=== PATIENT | female | born 1945 | race Caucasian/White ===

== ENCOUNTER 2021-01-18 09:43 | Outpatient (CLI) | payer MEDICARE, OTHER | END 2021-01-18 09:44 | disposition home or self-care (01) | LOC: BICMAMMO 09:43 | PROVIDERS: ATTEND Internal Medicine Rheumatology | DX: M81.0 Age-related osteoporosis without current pathological fracture (principal) | CPT/HCPCS: 77080 ==

== ENCOUNTER 2021-12-25 12:22 | Outpatient (CLI) | payer MEDICARE | END 2021-12-25 12:23 | disposition home or self-care (01) | LOC: BICRAD 12:22 | PROVIDERS: ATTEND Internal Medicine Rheumatology | DX: M25.561 Pain in right knee (principal); M25.562 Pain in left knee; M17.0 Bilateral primary osteoarthritis of knee ==

== ENCOUNTER 2022-05-22 08:45 | Outpatient (CLI) | payer MEDICARE ==
[2022-05-22 10:18] LABS: #Basophils 0.1 10x3/uL (0.0-0.2); #Eosinphils 0.1 10x3/uL (0.0-0.5); #Monocytes 0.6 10x3/uL (0.0-1.1); #Neutrophils 3.3 10x3/uL (1.5-8.4); %Basophils 1.3 % (0.0-2.0); %Eosinophils 2.2 % (0.0-6.0); %Lymphocytes 22.4 % (18.0-47.0); %Monocytes 11.5 % (0.0-10.0); %Neutrophils 61.9 % (40.0-75.0); Hemoglobin 12.4 g/dL (12.0-15.5); Mean Corpuscular HGB CONC 32.5 g/dL (32.0-36.0); Mean Corpuscular Hemoglobin 30.1 pg (27.0-33.0); Mean Corpuscular Volume 92.7 fl (81.6-98.3); Mean Platelet Volume 10.5 fl (7.4-10.4); Platelet Count 174 10x3/uL (150-450); RBC Distribution Width 16.5 % (11.5-14.5); Red Blood Cell (RBC) Count 4.12 10x6/uL (3.90-5.03); White Blood Cell (WBC) Count 5.4 10x3/uL (3.5-10.5)
[2022-05-22 10:46] LABS: INR-International Normal Ratio 1.1; Prothrombin Time 11.4 sec (9.5-12.1)
[2022-05-22 10:54] LABS: Anion Gap 15 mmol/L (10-20); BUN (Urea Nitrogen) 12 mg/dL (9.8-20.1); Calc. Creatinine Clearance 0 mL/min (70-130); Calcium 9.8 mg/dL (7.8-10.44); Carbon Dioxide 29 mmol/L (23-31); Chloride 99 mmol/L (98-107); Estimated GFR 78; Glucose 114 mg/dL (83-110); Potassium 3.7 mmol/L (3.5-5.1); Sodium 139 mmol/L (136-145)
== END 2022-05-22 08:46 | disposition home or self-care (01) ==
LOC: LABBT 08:45
PROVIDERS: ATTEND Orthopaedic Surgery
DX: Z01.812 Encounter for preprocedural laboratory examination (principal); M17.11 Unilateral primary osteoarthritis, right knee; Z20.822 Contact with and (suspected) exposure to COVID-19
CPT/HCPCS: 80048; 85025; 85610; 87081; 87811

== ENCOUNTER 2022-05-27 08:10 | Inpatient (IN) | payer MEDICARE ==
[2022-05-23 14:45] VITALS: BMI 28.8
[2022-05-27] MEDS ORDERED: Tranexamic Acid 1,000 MG/10 ML VIAL ONE (09:41)
[2022-05-27] MEDS ORDERED: Vancomycin (BATCH) 1.5 GRAM/300 ML BAG ONE (09:41)
[2022-05-27] MEDS ORDERED: Sodium Chloride 0.9% 100 ML ONE ×2 (09:41→11:03)
[2022-05-27] MEDS ORDERED: Midazolam HCl 2 mg/2 ml Vial ONE ×2 (10:19→10:47)
[2022-05-27] MEDS ORDERED: Fentanyl 100 MCG/2 ML VIAL ONE ×3 (10:19→15:08)
[2022-05-27] MEDS ORDERED: Bupivacaine PF 0.5% 30 ML VIAL ONE (10:47)
[2022-05-27] MEDS ORDERED: CEFAZOLIN 2 GM VIAL ONE (11:03)
[2022-05-27] MEDS ORDERED: Fentanyl 100 MCG/2 ML VIAL SLOW IVP PRN (11:12)
[2022-05-27] MEDS ORDERED: Zolpidem Tartrate 5 MG TAB PO PRN ×2 (11:15→12:32)
[2022-05-27] MEDS ORDERED: Ondansetron PF 4 MG/2 ML Vial IVP PRN ×2 (11:15→12:32)
[2022-05-27] MEDS ORDERED: Ropivacaine 0.2% 550 ML 550 ML NERVE BLCK SCH (11:15)
[2022-05-27] MEDS ORDERED: traMADol HCl 50 MG TAB PO PRN (11:15)
[2022-05-27] MEDS ORDERED: Promethazine HCl 25 MG/ML VIAL IM PRN ×2 (11:15→12:32)
[2022-05-27] MEDS ORDERED: PROPOFOL 200 MG/20 ML VIAL ONE (11:21)
[2022-05-27] MEDS ORDERED: diphenhydrAMINE 50 MG/ML VIAL ONE (11:21)
[2022-05-27] MEDS ORDERED: Ondansetron PF 4 MG/2 ML Vial ONE (11:21)
[2022-05-27] MEDS ORDERED: Bupivacaine HCl 0.5%/Epinephrine 1:200,000/PF 30 ml Vial ONE (11:21)
[2022-05-27] MEDS ORDERED: Lidocaine 1% PF 5 ML VIAL ONE (11:21)
[2022-05-27] MEDS: Acetaminophen 500 MG TAB PO SCH ×3 (12:00→23:59)
[2022-05-27] MEDS ORDERED: Promethazine HCl 25 MG/ML VIAL IVPB PRN (12:19)
[2022-05-27] MEDS ORDERED: PACU-Morphine 4MG/ML VIAL SLOW IVP PRN (12:19)
[2022-05-27] MEDS ORDERED: Acetaminophen 325 MG TAB PO PRN (12:32)
[2022-05-27] MEDS ORDERED: diphenhydrAMINE 25 MG CAP PO PRN (12:32)
[2022-05-27] MEDS ORDERED: oxyCODONE/Acetaminophen 5 mg/325 mg Tablet PO PRN ×2 (12:33)
[2022-05-27] MEDS: CEFAZOLIN 2 GM in Sodium Chloride 0.9% 100 ML IVPB SCH ×2 (12:45→21:17)
[2022-05-27] MEDS: Ketorolac Tromethamine 30 MG/ML VIAL IVP SCH ×2 (14:00→21:23)
[2022-05-27] MEDS: traMADol HCl 50 MG TAB PO PRN (17:19)
[2022-05-27] MEDS: Sodium Chloride 0.9% 1,000 ML IV SCH ×2 (17:21→23:54)
[2022-05-27] MEDS: Senokot S 8.6-50 MG TAB PO SCH (21:18)
[2022-05-27] MEDS: Ferrous Gluconate 324 MG TAB PO SCH (21:18)
[2022-05-28] MEDS ORDERED: HumaLOG 300 UNITS/3 ML VIAL SC PRN (00:34)
[2022-05-28] MEDS ORDERED: Dextrose 50% Abboject 50 ML SYRINGE SLOW IVP PRN (00:34)
[2022-05-28] MEDS ORDERED: Dextrose 5% in Water 1,000 ML IV PRN (00:34)
[2022-05-28 01:50] LABS: ALT (SGPT) 21 U/L (8-55); AST (SGOT) 35 U/L (5-34); Alkaline Phosphatase 37 U/L (40-110); Anion Gap 14 mmol/L (10-20); BUN (Urea Nitrogen) 10 mg/dL (9.8-20.1); Bilirubin, Total 0.7 mg/dL (0.2-1.2); Calc. Creatinine Clearance 85 mL/min (70-130); Calcium 8.4 mg/dL (7.8-10.44); Carbon Dioxide 25 mmol/L (23-31); Chloride 101 mmol/L (98-107); Estimated GFR 83; Globulin 2.4 g/dL (2.4-3.5); Glucose 286 mg/dL (83-110); Magnesium 1.2 mg/dL (1.6-2.6); Potassium 3.8 mmol/L (3.5-5.1); Protein, Total 5.4 g/dL (5.8-8.1); Sodium 136 mmol/L (136-145)
[2022-05-28 02:46] LABS: Band 2 % (5-11); Hemoglobin 10.3 g/dL (12.0-16.0); Lymphocytes 8 % (21-51); MDiff Complete? YES; Macrocytosis SLIGHT = 6-15 cells (100X) (0-5/hpf); Mean Corpuscular Hemoglobin 33.4 pg (27.0-31.0); Mean Corpuscular Volume 98.2 fL (78.0-98.0); Mean Platelet Volume 8.2 fL (7.4-10.4); Monocytes 14 % (0-10); Neutrophil 76 % (42-75); Ovalocytes SLIGHT = 2-5 cells (100X) (0-1/hpf); Platelet Count 110 thou/uL (130-400); Platelet Morphology Comment Appears Decreased; RBC Distribution Width 16.2 % (11.5-14.5); Red Blood Cell (RBC) Count 3.07 mill/uL (4.20-5.40); Tear Drops SLIGHT = 2-5 cells (100X) (0-1/hpf); White Blood Cell (WBC) Count 8.4 thou/uL (4.8-10.8)
[2022-05-28 04:24] LABS: Mean Corpuscular HGB CONC 33.1 g/dL (32.0-36.0); Mean Corpuscular Hemoglobin 32.6 pg (27.0-31.0); Mean Corpuscular Volume 98.4 fL (78.0-98.0); Mean Platelet Volume 7.9 fL (7.4-10.4); Platelet Count 113 thou/uL (130-400); Red Blood Cell (RBC) Count 3.08 mill/uL (4.20-5.40); White Blood Cell (WBC) Count 8.1 thou/uL (4.8-10.8)
[2022-05-28] MEDS ORDERED: Magnesium 2 GM/50 ML(in water) 2 GM in Premix Bag 1 BAG IVPB SCH (06:15)
[2022-05-28] MEDS: Levothyroxine Sodium 112 MCG TAB PO SCH (06:20)
[2022-05-28] MEDS: Ketorolac Tromethamine 30 MG/ML VIAL IVP SCH ×3 (06:20→21:10)
[2022-05-28] MEDS: Levothyroxine Sodium 25 MCG TAB PO SCH (06:20)
[2022-05-28] MEDS: Acetaminophen 500 MG TAB PO SCH ×3 (06:22→19:11)
[2022-05-28] MEDS: HumaLOG 300 UNITS/3 ML VIAL SC PRN ×2 (07:27→12:20)
[2022-05-28] MEDS ORDERED: Non-Formulary Item 1 EACH (Levothyroxine Sodium [Levothyroxine Sodium] 137 MCG Tablet) PO SCH (09:00)
[2022-05-28] MEDS: Multivitamin W/ Minerals 1 TAB PO SCH (10:16)
[2022-05-28] MEDS: Ferrous Gluconate 324 MG TAB PO SCH ×2 (10:16→21:09)
[2022-05-28] MEDS: Metoprolol Tartrate 25 MG TAB PO SCH ×2 (10:17→21:10)
[2022-05-28] MEDS: Senokot S 8.6-50 MG TAB PO SCH ×4 (10:18→21:23)
[2022-05-28] MEDS: Folic Acid 1 MG TAB PO SCH (10:19)
[2022-05-28] MEDS: Cholecalciferol 1,000 UNITS (25 MCG) TAB PO SCH (10:20)
[2022-05-28] MEDS: Magnesium Oxide 400 MG TAB PO SCH (10:21)
[2022-05-28] MEDS: Losartan 25 MG TAB PO SCH (10:21)
[2022-05-28] MEDS: Furosemide 40 MG TAB PO SCH (10:21)
[2022-05-28] MEDS: Atorvastatin Calcium 20 MG TAB PO SCH (10:21)
[2022-05-28] MEDS: HumuLIN 70/30 (300 UNITS/3 ML VIAL) SC SCH ×2 (10:55→19:26)
[2022-05-28] MEDS: Ferrous Sulfate 325 MG TAB PO SCH (11:10)
[2022-05-28] MEDS: traMADol HCl 50 MG TAB PO PRN (11:19)
[2022-05-28] MEDS: Sodium Chloride 0.9% 1,000 ML IV SCH ×2 (13:22→19:29)
[2022-05-28] MEDS: diphenhydrAMINE 25 MG CAP PO SCH (21:10)
[2022-05-29] MEDS: Acetaminophen 500 MG TAB PO SCH ×4 (00:26→17:10)
[2022-05-29 04:42] LABS: Hemoglobin 9.4 g/dL (12.0-16.0); Mean Corpuscular HGB CONC 32.1 g/dL (32.0-36.0); Mean Corpuscular Hemoglobin 31.8 pg (27.0-31.0); Mean Corpuscular Volume 99.2 fL (78.0-98.0); Mean Platelet Volume 8.1 fL (7.4-10.4); Platelet Count 121 thou/uL (130-400); RBC Distribution Width 16.3 % (11.5-14.5); Red Blood Cell (RBC) Count 2.96 mill/uL (4.20-5.40); White Blood Cell (WBC) Count 9.1 thou/uL (4.8-10.8)
[2022-05-29] MEDS: Levothyroxine Sodium 25 MCG TAB PO SCH (05:56)
[2022-05-29] MEDS: Levothyroxine Sodium 112 MCG TAB PO SCH (05:56)
[2022-05-29] MEDS: Ketorolac Tromethamine 30 MG/ML VIAL IVP SCH ×2 (05:57→16:20)
[2022-05-29] MEDS: Sodium Chloride 0.9% 1,000 ML IV SCH ×2 (06:25→16:21)
[2022-05-29] MEDS: HumuLIN 70/30 (300 UNITS/3 ML VIAL) SC SCH ×2 (07:54→17:10)
[2022-05-29] MEDS: Ferrous Sulfate 325 MG TAB PO SCH (07:55)
[2022-05-29] MEDS: Cholecalciferol 1,000 UNITS (25 MCG) TAB PO SCH (09:30)
[2022-05-29] MEDS: Multivitamin W/ Minerals 1 TAB PO SCH (09:30)
[2022-05-29] MEDS: Folic Acid 1 MG TAB PO SCH (09:30)
[2022-05-29] MEDS: Atorvastatin Calcium 20 MG TAB PO SCH (09:31)
[2022-05-29] MEDS: Magnesium Oxide 400 MG TAB PO SCH (09:31)
[2022-05-29] MEDS: Ferrous Gluconate 324 MG TAB PO SCH ×2 (09:31→21:16)
[2022-05-29] MEDS: Senokot S 8.6-50 MG TAB PO SCH ×3 (09:31→21:16)
[2022-05-29] MEDS: Losartan 25 MG TAB PO SCH (09:38)
[2022-05-29] MEDS: Furosemide 40 MG TAB PO SCH (09:38)
[2022-05-29] MEDS: Metoprolol Tartrate 25 MG TAB PO SCH ×2 (09:39→21:16)
[2022-05-29] MEDS ORDERED: Lorazepam 1 MG TAB PO PRN (16:05)
[2022-05-29] MEDS: diphenhydrAMINE 25 MG CAP PO SCH (21:16)
[2022-05-29] MEDS: Aspirin 81 mg Enteric Coated Tablet PO SCH (21:16)
[2022-05-30] MEDS: Senokot S 8.6-50 MG TAB PO SCH ×3 (01:26→09:07)
[2022-05-30] MEDS: Sodium Chloride 0.9% 1,000 ML IV SCH ×2 (01:27→09:18)
[2022-05-30 04:26] LABS: Hemoglobin 9.6 g/dL (12.0-16.0); Mean Corpuscular HGB CONC 32.6 g/dL (32.0-36.0); Mean Corpuscular Hemoglobin 32.4 pg (27.0-31.0); Mean Corpuscular Volume 99.2 fL (78.0-98.0); Mean Platelet Volume 8.1 fL (7.4-10.4); Platelet Count 122 thou/uL (130-400); RBC Distribution Width 16.2 % (11.5-14.5); Red Blood Cell (RBC) Count 2.98 mill/uL (4.20-5.40); White Blood Cell (WBC) Count 8.2 thou/uL (4.8-10.8)
[2022-05-30 04:46] LABS: Cardiac Risk 3.4 (Less than 4.5)
[2022-05-30] MEDS: Levothyroxine Sodium 112 MCG TAB PO SCH (05:55)
[2022-05-30] MEDS: Levothyroxine Sodium 25 MCG TAB PO SCH (05:55)
[2022-05-30] MEDS: Acetaminophen 500 MG TAB PO SCH ×3 (06:05→12:03)
[2022-05-30] MEDS ORDERED: CeleCOXIB 100 MG CAP PO SCH (09:00)
[2022-05-30] MEDS: Folic Acid 1 MG TAB PO SCH (09:04)
[2022-05-30] MEDS: Atorvastatin Calcium 20 MG TAB PO SCH (09:05)
[2022-05-30] MEDS: Metoprolol Tartrate 25 MG TAB PO SCH (09:06)
[2022-05-30] MEDS: Ferrous Sulfate 325 MG TAB PO SCH (09:06)
[2022-05-30] MEDS: Losartan 25 MG TAB PO SCH (09:06)
[2022-05-30] MEDS: Furosemide 40 MG TAB PO SCH (09:06)
[2022-05-30] MEDS: Magnesium Oxide 400 MG TAB PO SCH (09:06)
[2022-05-30] MEDS: Aspirin 81 mg Enteric Coated Tablet PO SCH (09:06)
[2022-05-30] MEDS: Multivitamin W/ Minerals 1 TAB PO SCH (09:06)
[2022-05-30] MEDS: Cholecalciferol 1,000 UNITS (25 MCG) TAB PO SCH (09:06)
[2022-05-30] MEDS: HumuLIN 70/30 (300 UNITS/3 ML VIAL) SC SCH (09:07)
[2022-05-30] MEDS: Ferrous Gluconate 324 MG TAB PO SCH (09:07)
[2022-05-30 12:01] VITALS: TEMP 98.1
[2022-05-30 12:57] VITALS: BP 130/60
== END 2022-05-30 12:27 | disposition home health service (06) | DRG 470 ==
LOC: SDC 08:10 → SJJU 17:04 → 2NO 22:43 → OBSVTOIN 05-28 17:44
PROVIDERS: ADMIT Orthopaedic Surgery; ATTEND Internal Medicine
PROC: 0SRC0JZ Replacement of Right Knee Joint with Synthetic Substitute, Open Approach (ICD-10-PCS; principal; 2022-05-27)
PROC: 3E0T3BZ Introduction of Anesthetic Agent into Peripheral Nerves and Plexi, Percutaneous Approach (ICD-10-PCS; 2022-05-27)
DX: M17.0 Bilateral primary osteoarthritis of knee (principal); Z20.822 Contact with and (suspected) exposure to COVID-19; I25.10 Atherosclerotic heart disease of native coronary artery without angina pectoris; E11.9 Type 2 diabetes mellitus without complications; E78.5 Hyperlipidemia, unspecified; I10 Essential (primary) hypertension; K21.9 Gastro-esophageal reflux disease without esophagitis; E03.9 Hypothyroidism, unspecified; E55.9 Vitamin D deficiency, unspecified; I48.0 Paroxysmal atrial fibrillation; R55 Syncope and collapse; Z95.1 Presence of aortocoronary bypass graft; Z95.2 Presence of prosthetic heart valve; Z83.3 Family history of diabetes mellitus; Z79.01 Long term (current) use of anticoagulants; Z88.5 Allergy status to narcotic agent; Z88.0 Allergy status to penicillin; Z88.7 Allergy status to serum and vaccine; Z91.09 Other allergy status, other than to drugs and biological substances; Z79.899 Other long term (current) drug therapy; Z82.49 Family history of ischemic heart disease and other diseases of the circulatory system; Z79.82 Long term (current) use of aspirin; Z79.890 Hormone replacement therapy; Z79.4 Long term (current) use of insulin
CPT/HCPCS: 36415; 36416; 70450; 80053; 80061; 83735; 84484; 85027; 93005; 93010; 93880; 96365; 96375; 96376; A4306; C1713; C1776; G0378; J0690; J1200; J1815; J1885; J2250; J2405; J2704; J2795; J3010; J3370; J3475; J3490; J7050; S0020

== ENCOUNTER 2022-07-29 05:52 | Day surgery (SDC) | payer MEDICARE ==
[2022-07-28 10:57] VITALS: BMI 27.2
[2022-07-29] MEDS ORDERED: PROPOFOL 20 ML ONE (07:20)
== END 2022-07-29 08:37 | disposition home or self-care (01) ==
LOC: SDC 05:52
PROVIDERS: ATTEND Internal Medicine Cardiovascular Disease
PROC: B246ZZ4 Ultrasonography of Right and Left Heart, Transesophageal (ICD-10-PCS; principal; 2022-07-29)
DX: I48.21 Permanent atrial fibrillation (principal); I08.1 Rheumatic disorders of both mitral and tricuspid valves; I11.9 Hypertensive heart disease without heart failure; I25.10 Atherosclerotic heart disease of native coronary artery without angina pectoris; E11.9 Type 2 diabetes mellitus without complications; E78.00 Pure hypercholesterolemia, unspecified; L40.50 Arthropathic psoriasis, unspecified; E03.9 Hypothyroidism, unspecified; Z79.01 Long term (current) use of anticoagulants; Z79.4 Long term (current) use of insulin; Z79.82 Long term (current) use of aspirin; Z79.890 Hormone replacement therapy; Z79.899 Other long term (current) drug therapy; Z88.0 Allergy status to penicillin; Z88.5 Allergy status to narcotic agent; Z88.7 Allergy status to serum and vaccine; Z91.048 Other nonmedicinal substance allergy status; Z95.1 Presence of aortocoronary bypass graft; Z95.2 Presence of prosthetic heart valve
CPT/HCPCS: 93312; J2704

== ENCOUNTER 2022-09-18 05:48 | Day surgery (SDC) | payer MEDICARE ==
[2022-09-16 10:31] VITALS: BMI 28.1
[2022-09-18] MEDS ORDERED: fentaNYL PF 100 MCG/2 ML SYRINGE ONE (06:55)
[2022-09-18] MEDS ORDERED: Ketamine 50 MG/ML (10ML VIAL) ONE (06:59)
[2022-09-18] MEDS ORDERED: PROPOFOL 200 MG/20 ML VIAL ONE (07:30)
== END 2022-09-18 08:45 | disposition home or self-care (01) ==
LOC: SDC 05:48
PROVIDERS: ATTEND Internal Medicine Cardiovascular Disease
PROC: B246ZZ4 Ultrasonography of Right and Left Heart, Transesophageal (ICD-10-PCS; principal; 2022-09-18)
DX: I48.21 Permanent atrial fibrillation (principal); I08.1 Rheumatic disorders of both mitral and tricuspid valves; I25.10 Atherosclerotic heart disease of native coronary artery without angina pectoris; E11.9 Type 2 diabetes mellitus without complications; I10 Essential (primary) hypertension; E78.00 Pure hypercholesterolemia, unspecified; L40.50 Arthropathic psoriasis, unspecified; E03.9 Hypothyroidism, unspecified; Z79.02 Long term (current) use of antithrombotics/antiplatelets; Z79.4 Long term (current) use of insulin; Z79.82 Long term (current) use of aspirin; Z79.890 Hormone replacement therapy; Z79.899 Other long term (current) drug therapy; Z88.0 Allergy status to penicillin; Z88.5 Allergy status to narcotic agent; Z88.7 Allergy status to serum and vaccine; Z95.1 Presence of aortocoronary bypass graft; Z95.2 Presence of prosthetic heart valve; Z95.818 Presence of other cardiac implants and grafts; Z91.048 Other nonmedicinal substance allergy status
CPT/HCPCS: 93312; J2704

== ENCOUNTER 2023-03-03 09:48 | Outpatient (CLI) | payer MEDICARE | END 2023-03-03 09:49 | disposition home or self-care (01) | LOC: BICMAMMO 09:48 | PROVIDERS: ATTEND Internal Medicine Rheumatology | DX: M81.0 Age-related osteoporosis without current pathological fracture (principal); S32.019S Unspecified fracture of first lumbar vertebra, sequela; M85.851 Other specified disorders of bone density and structure, right thigh; M85.852 Other specified disorders of bone density and structure, left thigh | CPT/HCPCS: 77080 ==

== ENCOUNTER 2024-05-20 07:37 | Outpatient (CLI) | payer MEDICARE | END 2024-05-20 07:38 | disposition home or self-care (01) | LOC: BICMAMMO 07:37 | PROVIDERS: ATTEND Internal Medicine Rheumatology | DX: M81.0 Age-related osteoporosis without current pathological fracture (principal); M85.852 Other specified disorders of bone density and structure, left thigh | CPT/HCPCS: 77080 ==